=== PATIENT | male | born 1995 | race Caucasian/White ===

== ENCOUNTER 2023-03-24 13:25 | Inpatient (IN) | payer MEDICAID, SELFPAY ==
[2023-03-24 13:55] VITALS: BP 144/96; PULSE 69; RESP 17; TEMP 36.8; O2SAT 98
[2023-03-24 14:00] VITALS: BP 144/96; PULSE 69; RESP 17; TEMP 36.8; O2SAT 98
[2023-03-24] MEDS: nicotine 2 mg Gum BUCCAL ×2 (15:33→17:54)
[2023-03-24 20:25] VITALS: BP 147/84; PULSE 78; RESP 18; TEMP 36.9; O2SAT 98
[2023-03-24] MEDS: lisinopril 20 mg Tablet 40 MG PO (21:03)
[2023-03-24] MEDS: pantoprazole DR 40 mg Tablet PO (21:03)
[2023-03-24] MEDS: OXcarbazepine 300 mg Tablet PO (21:03)
[2023-03-24] MEDS: ibuprofen 600 mg Tablet PO (21:03)
[2023-03-24 21:08] LABS: Amphetamines Screen Urine Negative (Negative); Barbiturates Screen Urine Negative (Negative); Benzodiazepines Screen Urine Negative (Negative); Cocaine Screen Urine Negative (Negative); Opiate Screen Urine Negative (Negative); PCP Screen Urine Negative (Negative); THC Screen Urine Positive (Negative)
[2023-03-25 00:32] VITALS: BMI 26.8
[2023-03-25 06:00] VITALS: BP 137/74; PULSE 86; RESP 18; TEMP 36.8; O2SAT 96
--- NOTE | 2023-03-25 08:51 | PC.NURSE ---
During morning assessment, patient stated that he didn't sleep well last night because of nightmares about bodies but that he doesn't remember the dreams, that he has flashes of the dream when he is awake. Patient reports anxiety 11/20. Denies SI, HI, AVH. Patient stressed to me the importance of staff not touching his lower back because two things will happen, my back will spasm or I will black out and get violent and at that point i will need to be tranquelized.
[2023-03-25] MEDS: ibuprofen 600 mg Tablet PO (10:42)
--- NOTE | 2023-03-25 10:47 | PC.NURSE ---
Patient reports his back went out. Patient states that the cause is unknown and typically lasts 30 minutes. Patient states it feels like his back is barely there .
[2023-03-25] MEDS: flu vacc pf 2023-24 (6 mos+) 60 MCG IM (12:03)
[2023-03-25] MEDS: nicotine 21 mg Patch 1 PATCH TRANSDERMA (12:03)
--- NOTE | 2023-03-25 12:12 | PC.NURSE ---
ADMINISTERED FLUARIX QUADRIVALENT 0.5ML TO PATIENT'S RIGHT DELTOID MUSCLE. NO ADVERSE REACTIONS. LOT:[id number]:12/11/23
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
[2023-03-25 14:00] VITALS: BP 129/85; PULSE 93; RESP 16; TEMP 37.2; O2SAT 96
[2023-03-25] MEDS: trazodone 50 mg Tablet PO (20:01)
[2023-03-25] MEDS: acetaminophen 325 mg Tablet 650 MG PO (20:01)
[2023-03-25] MEDS: lisinopril 20 mg Tablet 40 MG PO (20:01)
[2023-03-25] MEDS: pantoprazole DR 40 mg Tablet PO (20:01)
[2023-03-25] MEDS: prazosin 1 mg Capsule PO (20:01)
[2023-03-25] MEDS: OXcarbazepine 300 mg Tablet PO (20:01)
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
[2023-03-25 20:42] VITALS: BP 151/99; PULSE 81; RESP 20; TEMP 36.9; O2SAT 96
[2023-03-26 06:00] VITALS: BP 127/78; PULSE 91; RESP 18; O2SAT 98
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
[2023-03-26] MEDS: nicotine 2 mg Gum BUCCAL ×2 (10:22→20:10)
[2023-03-26 14:00] VITALS: BP 137/86; PULSE 83; RESP 16; TEMP 36.8; O2SAT 99
[2023-03-26] MEDS: nicotine 4 mg lozenge MUCOUS MEM (14:05)
--- NOTE | 2023-03-26 20:00 | PC.NURSE ---
IN BED SITTING NO DISTRESS OBSERVED. PT STATES HE SLEPT WELL LAST NIGHT AND HIS DREAMS WERE WEIRD LAST NIGHT BUT I DIDN'T HAVE NIGHTMARES SO THAT WAS GOOD. PT STATES MY ANXIETY IS DIFFERENT TOO, ITS MORE IN MY HEART TONIGHT THAN IN MY HEAD IF THAT MAKES SENSE. PT DECLINED PHARMACEUTICAL INTERVENTION FOR ANXIETY, STATES HE WILL WAIT FOR HIS NIGHT TIME MEDS. PT DENIES DEPRESSION, STATING ITS GONE. PT DENIES SI/HI AND AVH AT THIS TIME. DENIES PAIN. ALL QUESTIONS WERE ANSWERED AND SUPPORT WAS VOICED.
[2023-03-26 20:03] VITALS: BP 121/82; PULSE 64; RESP 18; TEMP 36.8; O2SAT 99
[2023-03-26] MEDS: acetaminophen 325 mg Tablet 650 MG PO (20:09)
[2023-03-26] MEDS: lisinopril 20 mg Tablet 40 MG PO (20:09)
[2023-03-26] MEDS: trazodone 50 mg Tablet PO (20:09)
[2023-03-26] MEDS: OXcarbazepine 300 mg Tablet PO (20:10)
[2023-03-26] MEDS: prazosin 1 mg Capsule PO (20:10)
[2023-03-26] MEDS: pantoprazole DR 40 mg Tablet PO (20:10)
[2023-03-27] MEDS: ibuprofen 600 mg Tablet PO ×3 (05:11→23:12)
[2023-03-27 06:00] VITALS: BP 107/75; PULSE 96; RESP 18; TEMP 36.9; O2SAT 96; BMI 27.5
[2023-03-27] MEDS: nicotine 2 mg Gum BUCCAL ×6 (06:11→20:08)
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
[2023-03-27 14:00] VITALS: BP 124/81; PULSE 88; RESP 20; TEMP 36.8; O2SAT 97
[2023-03-27] MEDS: hyDROXYzine 25 mg Capsule 50 MG PO ×2 (16:37→23:10)
--- NOTE | 2023-03-27 18:02 | PC.NURSE ---
Talking on patient phone. Appears calm. Did ask for a medication for anxiety earlier. Stated, I feel like I'm going to have a fucking autistic panic attack. Vistaril 50mg PO was given and appears to have had desired effects.
[2023-03-27 19:27] VITALS: BP 131/82; PULSE 92; RESP 16; TEMP 37.2; O2SAT 97
--- NOTE | 2023-03-27 20:00 | PC.NURSE ---
RESTING IN BED, REPORTS HE HAS BEEN WRITTING POETRY TO COPE WITH HIS CURRENT SITUATION AND STATES IT HELPS HIM PROCESS THINGS BETTER. PT REPORTS HE WAS GIVEN VISTARIL 50 MG LAST SHIFT AND IT HAS BEEN THE ONLY THING TO EVER HELP WITH MY ANXIETY. PT WAS EDUCATED VISTARIL IS AVAILABLE TO HIM EVERY SIX HOURS IF NEEDED. PT VOICES THANKS AND APPRECIATION FOR LISTENING TO HIM AND STATES, DR. CAVANAUGH IS THE FIRST DRIshan TO REALLY LISTEN TO ME AND GET ME THE MEDICATIONS THAT HELP WITH MY ANXIETY. PT DENIES SI/HI AND AVH AT THIS TIME. REPORTS BACK PAIN / BUT DECLINES MEDICATIONS. PT CONTINUES TO PROCESS CURRENT SITUATION WITH FAMILY MEMBERS AND TRYING TO COME UP WITH SOLUTIONS TO RESOLVE FAMILY CONFLICT. PT IS ENCOURAGE TO CONTINUE TO JOURNAL. STATES HE SLEPT REALLY WELL LAST NIGHT AND THE PROZOSIN IS REALLY HELPING. I'M NOT HAVING ANY NIGHTMARES NOW. ALL QUESTIONS WERE ANSWERED AND SUPPORT WAS VOICED.
[2023-03-27] MEDS: pantoprazole DR 40 mg Tablet PO (20:09)
[2023-03-27] MEDS: lisinopril 20 mg Tablet 40 MG PO (20:09)
[2023-03-27] MEDS: trazodone 50 mg Tablet PO (20:09)
[2023-03-27] MEDS: prazosin 1 mg Capsule PO (20:09)
[2023-03-27] MEDS: OXcarbazepine 300 mg Tablet PO (20:09)
--- NOTE | 2023-03-28 04:33 | PC.NURSE ---
PT RECEIVED TRAZODONE 50 MG FOR C/O OF INSOMNIA AT APPROXIMATELY 2000 LAST NIGHT PRIOR TO GOING TO BED. PT DID WAKE UP AT APPROXIMATELY 2300 AND REQUESTED THE VISTARIL SO MY ANXIETY WILL GO DOWN. UI UX ENGINEER ADMINISTERED VISTARILL 50 MG AT THAT TIME REQUESTED. PT HAS BEEN RESTING WITH EYES CLOSED SINCE THEN. MEDICATIONS DEEMED EFFECTIVE.
[2023-03-28 06:00] VITALS: BP 102/64; PULSE 63; RESP 14; TEMP 36.5; O2SAT 96
[2023-03-28] MEDS: nicotine 2 mg Gum BUCCAL ×5 (08:46→20:29)
[2023-03-28] MEDS: hyDROXYzine 25 mg Capsule 50 MG PO (13:24)
[2023-03-28 14:00] VITALS: BP 133/94; PULSE 83; RESP 18; TEMP 36.9; O2SAT 94
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
[2023-03-28 15:22] LABS: Glucose Point of Care 95 mg/dL (70-110)
--- NOTE | 2023-03-28 15:58 | PC.NURSE ---
Patient stated he knew his blood sugar was dropping drastically because he felt like he was going to pass out. This RN requested he sit down and his glucose was tested at 95. Patient then said, actually I think it was my autism. Sometimes it makes me feel that way when my hair gets too long.
[2023-03-28] MEDS: ibuprofen 600 mg Tablet PO (17:11)
[2023-03-28 20:07] VITALS: BP 119/73; PULSE 70; RESP 16; TEMP 36.8; O2SAT 98
[2023-03-28] MEDS: acetaminophen 325 mg Tablet 650 MG PO (20:28)
[2023-03-28] MEDS: prazosin 1 mg Capsule 2 MG PO (20:28)
[2023-03-28] MEDS: pantoprazole DR 40 mg Tablet PO (20:28)
[2023-03-28] MEDS: trazodone 50 mg Tablet PO (20:28)
[2023-03-28] MEDS: lisinopril 20 mg Tablet 40 MG PO (20:29)
[2023-03-28] MEDS: OXcarbazepine 300 mg Tablet PO (20:29)
[2023-03-29] MEDS: hyDROXYzine 25 mg Capsule 50 MG PO (04:41)
[2023-03-29 06:00] VITALS: BP 102/61; PULSE 92; RESP 16; TEMP 36.9; O2SAT 97
--- NOTE | 2023-03-29 06:01 | PC.NURSE ---
IN ROOM RESTING AND READING BOOK NO DISTRESS IS NOTED. PT REPORTS RIGHT LEG PAIN 11/20, TYLENOL WAS GIVEN ORDERED. PT DENIES SI/HI AND AVH AT THIS TIME. PT DENIES HAVING ANY NIGHTMARES LAST NIGHT AND STATES THE PROZOSIN IS WORKING. EDUCATED PT THAT IT WAS INCREASED HE REQUESTED. PT STATES HE IS OVERSTIMULATED AND THIS IS HOW I GET. PT DENIES ANXIETY AND DEPRESSION, EVEN THOUGH PT IS OBSERVED ROCKING BACK AND FORTH CONSTANTLY. TRAZODONE 50 MG GIVEN ORDERED TO INCREASE SLEEP. PT SPOKE IN DEPTH ABOUT HIS SISTER AND WANTING TO MEND THEIR RELATIONSHIP BUT STATES HE CAN'T BECAUSE HE DOES NOT HAVE THE MENTAL CAPACITY OR THE PATIENCE. PT WAS ENCOURAGED TO CONTINUE TO JOURNAL AND READ. ALL QUESTIONS ANSWRED AND SUPPORT.
--- NOTE | 2023-03-29 06:02 | PC.NURSE ---
TRAZODONE WAS EFFECTIVE PT SLEPT TIL 0400 THEN WOKE UP REQUESTING VISTARIL. VISTARIL 50 MG WAS GIVEN ORDERED FOR ANXIETY. MEDICATION DEEMED EFFECTIVE. PT CURRENTLY RESTING IN BED WITH EYES CLOSED NO S/S OF ANXIETY IS NOTED AT THIS TIME.
[2023-03-29] MEDS: nicotine 2 mg Gum BUCCAL ×3 (08:44→14:44)
[2023-03-29] MEDS: ibuprofen 600 mg Tablet PO (10:32)
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
[2023-03-29 13:06] VITALS: BP 102/61; PULSE 92; RESP 16; TEMP 36.9; O2SAT 97
[2023-03-29 14:00] VITALS: BP 133/88; PULSE 93; RESP 18; TEMP 36.8; O2SAT 97
== END 2023-03-29 17:43 | disposition home or self-care (01) | DRG 882 ==
PROVIDERS: Admitting Provider Psychiatry & Neurology Psychiatry; Visit Provider Psychiatry & Neurology Psychiatry
DX: F43.10 Post-traumatic stress disorder, unspecified (principal); R45.851 Suicidal ideations; Z62.810 Personal history of physical and sexual abuse in childhood; Z62.811 Personal history of psychological abuse in childhood; F32.A Depression, unspecified; F41.9 Anxiety disorder, unspecified; F60.3 Borderline personality disorder; F17.290 Nicotine dependence, other tobacco product, uncomplicated; F17.220 Nicotine dependence, chewing tobacco, uncomplicated
CPT/HCPCS: 36416; 80306; 82962; 90471; 90686; 97150; 97165